=== PATIENT | female | born 1965 | race Caucasian/White ===

== ENCOUNTER 2021-05-17 08:03 | Outpatient (CLI) | payer OTHER, SELFPAY | END 2021-05-17 08:04 | disposition home or self-care (01) | LOC: ANHAUDIO 08:04 | PROVIDERS: PCP Nurse Practitioner Family; Visit Provider Nurse Practitioner Family | DX: R42 Dizziness and giddiness (principal) | CPT/HCPCS: 92537; 92540; 92546; 92557; 92567 ==